=== PATIENT | female | born 1985 | race Caucasian/White ===

== ENCOUNTER 2018-04-08 15:03 | Emergency (ER) | payer OTHER ==
[~2018-04-08] VITALS: Ht 160 cm; Wt 79.4 kg
[2018-04-08] MEDS ORDERED: NORCO 5-325 TA1 EACH PO (15:43)
[2018-04-08] MEDS ORDERED: PENICILLIN V P500 MG PO (15:43)
[2018-04-08] MEDS ORDERED: IBUPROFEN 600600 M1 PO (15:43)
[2018-04-08 16:03] VITALS: BP 130/88
== END 2018-04-08 16:03 | disposition home or self-care (01) ==
LOC: ER 15:03
DX: S02.5XXA Fracture of tooth (traumatic), initial encounter for closed fracture (principal); K02.9 Dental caries, unspecified; F17.210 Nicotine dependence, cigarettes, uncomplicated; X58.XXXA Exposure to other specified factors, initial encounter; Y92.89 Other specified places as the place of occurrence of the external cause; Y93.89 Activity, other specified; Y99.8 Other external cause status